=== PATIENT | female | born 1985 | race American Indian/Alaskan Native ===

== ENCOUNTER 2016-10-11 19:45 | Emergency (ER) | payer SELFPAY ==
[2016-10-11 19:56] VITALS: BP 120/70
--- NOTE | 2016-10-11 21:02 | EDM.PDOC ---
ED HPI GENERAL MEDICAL PROBLEM - General Chief Complaint: Abdominal Pain Stated Complaint: ABD PAINS, [id number] Time Seen by Provider: 10/11/16 20:40 Source of Information: Reports: Patient History Limitations: Reports: No Limitations - History of Present Illness INITIAL COMMENTS - FREE TEXT/NARRATIVE: ED with c/o of abdominal pain bloating and watery diarrhea for past 5-6 days. States she is worried about her liver and kidneys. Admitts to relapsing twice in past week with IV meth, last 4 days ago. No urinary complaints. Reports being airlifted approximately one year ago as kidneys were shutting down. LMP 2 months ago. Location: Reports: Abdomen Quality: Reports: Pressure, Sharp Severity: Moderate Abdominal Pain Score (Numeric/FACES): 6 - Related Data Allergies Allergy/AdvReac Type Severity Reaction Status Date / Time No Known Allergies Allergy Verified 10/11/16 19:55 Home Meds: Home Meds . 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, Other OB/BYN History: anti ashleigh antibody Musculoskeletal History: Reports: None Neurological History: Reports: None Psychiatric History: Reports: ADHD, Addiction Endocrine/Metabolic History: Reports: None Hematologic History: Reports: None Other Hematologic History: anti ashleigh antibody Immunologic History: Reports: None Oncologic (Cancer) History: Reports: None - Infectious Disease History Infectious Disease History: Reports: Hepatitis C Social & Family History - Family History HEENT: Reports: None Cardiac: Reports: None Respiratory: Reports: None GI: Reports: None : Reports: None OBGYN: Reports: None Musculoskeletal: Reports: None Neurological: Reports: None Hematologic: Reports: None Immunologic: Reports: None Dermatologic: Reports: None Oncologic: Reports: None - Tobacco Use Smoking Status *Q: Current Some Day Smoker Years of Tobacco use: 10 Packs/Tins Daily: 0.2 Used Tobacco, but Quit: No Month Tobacco Last Used: may 2014 Second Hand Smoke Exposure: Yes - Caffeine Use Caffeine Use: Reports: None - Alcohol Use Days Per Week of Alcohol Use: 0 - Recreational Drug Use Recreational Drug Use: No Drug Use in Last 12 Months: Yes Recreational Drug Type: Reports: Methamphetamine Recreational Drug Use Frequency: Daily ED ROS GENERAL - Review of Systems Review Of Systems: See Below Constitutional: Reports: No Symptoms HEENT: Reports: No Symptoms Respiratory: Reports: No Symptoms Cardiovascular: Reports: No Symptoms GI/Abdominal: Reports: Abdominal Pain, Diarrhea, Distension : Reports: Flank Pain (right) Musculoskeletal: Reports: No Symptoms Skin: Reports: No Symptoms Neurological: Reports: No Symptoms Psychiatric: Reports: Anxiety Hematologic/Lymphatic: Reports: No Symptoms, Other (Admits hx positive Hep C) ED EXAM, GI/ABD - Physical Exam Exam: See Below Exam Limited By: No Limitations General Appearance: Alert, Mild Distress Eyes: Bilateral: EOMI Ears: Normal External Exam Nose: Normal Inspection Throat/Mouth: Normal Inspection, Normal Lips, Normal Oropharynx Head: Atraumatic, Normocephalic Neck: Normal Inspection, Full Range of Motion Respiratory/Chest: No Respiratory Distress, Lungs Clear, Normal Breath Sounds Cardiovascular: Normal Peripheral Pulses, Regular Rate, Rhythm GI/Abdominal: Normal Bowel Sounds, Soft, Hyperactive Bowel Sounds, Tenderness ( general lower abdomen, greater with palpation RUQ) Extremities: Normal Inspection Neurological: Alert, Oriented, Normal Cognition Psychiatric: Anxious Skin Exam: Warm, Dry, Intact, Normal Color, Tattoo(s) Course - Vital Signs Last Recorded V/S: Last Vital Signs Temp 97.9 F 10/11/16 19:55 Pulse 75 10/11/16 19:55 Resp 20 10/11/16 19:55 BP 120/70 10/11/16 19:55 Pulse Ox 100 10/11/16 19:55 - Orders/Labs/Meds Labs: Laboratory Tests 10/11/16 10/11/16 10/11/16 Range/Units 20:37 20:37 20:45 WBC 6.6 (5.0-10.0) 10^3/uL RBC 4.31 (4.2-5.4) 10^6/uL Hgb 13.1 (12.0-16.0) g/dL Hct 38.9 (37.0-47.0) % MCV 90.3 (80-100) fL MCH 30.4 (27.0-34.0) pg MCHC 33.7 (33.0-35.0) g/dL Plt Count 232 (150-450) 10^3/uL Neut % (Auto) 56.2 (42.2-75.2) % Lymph % (Auto) 33.6 (20.5-50.1) % [place] % (Auto) 8.3 H (2-8) % Eos % (Auto) 1.7 (1.0-3.0) % Baso % (Auto) 0.2 (0.0-1.0) % Sodium (135-145) mmol/L Potassium (3.6-5.0) mmol/L Chloride (101-111) mmol/L Carbon Dioxide (21.0-31.0) mmol/L Anion Gap BUN (7-18) mg/dL Creatinine (0.6-1.3) mg/dL Est Cr Clr Drug Dosing mL/min Estimated GFR (MDRD) BUN/Creatinine Ratio Glucose (74-105) mg/dL Calcium (8.4-10.2) mg/dl Total Bilirubin (0.2-1.0) mg/dL AST (10-42) IU/L ALT (10-60) IU/L Alkaline Phosphatase (42-121) IU/L C-Reactive Protein (0.0-1.3) mg/dL Total Protein (6.7-8.2) g/dl Albumin (3.2-5.5) g/dl Globulin Albumin/Globulin Ratio Amylase (28-100) U/L Lipase (22-51) U/L HCG, Qual Urine Color Yellow (YELLOW) Urine Appearance Slightly cloudy (CLEAR) Urine pH 6.5 (5.0-9.0) Ur Specific [place] 1.020 (1.005-1.030) Urine Protein Negative (NEGATIVE) Urine Glucose (UA) Negative (NEGATIVE) Urine Ketones Negative (NEGATIVE) Urine Occult Blood Negative (NEGATIVE) Urine Nitrite Positive H (NEGATIVE) Urine Bilirubin Negative (NEGATIVE) Urine Urobilinogen 0.2 (0.2-1.0) mg/dL Ur Leukocyte Esterase Trace H (NEGATIVE) Urine RBC 0-5 /HPF Urine WBC 5-10 H (0-5/HPF) /HPF Ur Epithelial Cells Few /HPF Urine Bacteria Many H (0-FEW/HPF) /HPF Urine Opiates Screen Negative (NEGATIVE) Ur Oxycodone Screen Negative (NEGATIVE) Urine Methadone Screen Negative (NEGATIVE) Ur Barbiturates Screen Negative (NEGATIVE) U Tricyclic Antidepress Negative (NEGATIVE) Ur Phencyclidine Scrn Negative (NEGATIVE) Ur Amphetamine Screen Positive H (NEGATIVE) U Methamphetamines Scrn Positive H (NEGATIVE) Urine MDMA Screen Negative (NEGATIVE) U Benzodiazepines Scrn Negative (NEGATIVE) Urine Cocaine Screen Negative (NEGATIVE) U Marijuana (THC) Screen Negative (NEGATIVE) 10/11/16 10/11/16 Range/Units 20:45 20:45 WBC (5.0-10.0) 10^3/uL RBC (4.2-5.4) 10^6/uL Hgb (12.0-16.0) g/dL Hct (37.0-47.0) % MCV (80-100) fL MCH (27.0-34.0) pg MCHC (33.0-35.0) g/dL Plt Count (150-450) 10^3/uL Neut % (Auto) (42.2-75.2) % Lymph % (Auto) (20.5-50.1) % [place] % (Auto) (2-8) % Eos % (Auto) (1.0-3.0) % Baso % (Auto) (0.0-1.0) % Sodium 134 L (135-145) mmol/L Potassium 3.8 (3.6-5.0) mmol/L Chloride 100 L (101-111) mmol/L Carbon Dioxide 25.0 (21.0-31.0) mmol/L Anion Gap 12.8 BUN 6 L (7-18) mg/dL Creatinine 0.6 (0.6-1.3) mg/dL Est Cr Clr Drug Dosing 137.04 mL/min Estimated GFR (MDRD) > 60 BUN/Creatinine Ratio 10.00 Glucose 96 (74-105) mg/dL Calcium 8.7 (8.4-10.2) mg/dl Total Bilirubin 0.3 (0.2-1.0) mg/dL AST 20 (10-42) IU/L ALT 25 (10-60) IU/L Alkaline Phosphatase 78 (42-121) IU/L C-Reactive Protein 4.6 H (0.0-1.3) mg/dL Total Protein 6.8 (6.7-8.2) g/dl Albumin 3.3 (3.2-5.5) g/dl Globulin 3.5 Albumin/Globulin Ratio 0.94 Amylase 43 (28-100) U/L Lipase 30 (22-51) U/L HCG, Qual Negative Urine Color (YELLOW) Urine Appearance (CLEAR) Urine pH (5.0-9.0) Ur Specific [place] (1.005-1.030) Urine Protein (NEGATIVE) Urine Glucose (UA) (NEGATIVE) Urine Ketones (NEGATIVE) Urine Occult Blood (NEGATIVE) Urine Nitrite (NEGATIVE) Urine Bilirubin (NEGATIVE) Urine Urobilinogen (0.2-1.0) mg/dL Ur Leukocyte Esterase (NEGATIVE) Urine RBC /HPF Urine WBC (0-5/HPF) /HPF Ur Epithelial Cells /HPF Urine Bacteria (0-FEW/HPF) /HPF Urine Opiates Screen (NEGATIVE) Ur Oxycodone Screen (NEGATIVE) Urine Methadone Screen (NEGATIVE) Ur Barbiturates Screen (NEGATIVE) U Tricyclic Antidepress (NEGATIVE) Ur Phencyclidine Scrn (NEGATIVE) Ur Amphetamine Screen (NEGATIVE) U Methamphetamines Scrn (NEGATIVE) Urine MDMA Screen (NEGATIVE) U Benzodiazepines Scrn (NEGATIVE) Urine Cocaine Screen (NEGATIVE) U Marijuana (THC) Screen (NEGATIVE) Departure - Departure Time of Disposition: 21:25 Disposition: Against Medical Advice 07 Condition: Undetermined Clinical Impression: IVDU (intravenous drug user), Methamphetamine abuse Abdominal pain Qualifiers: Abdominal location: unspecified location Qualified Code(s): R10.9 - Unspecified abdominal pain Diarrhea Qualifiers: Diarrhea type: unspecified type Qualified Code(s): R19.7 - Diarrhea, unspecified UTI (urinary tract infection) Qualifiers: Urinary tract infection type: site unspecified Hematuria presence: without hematuria Qualified Code(s): N39.0 - Urinary tract infection, site not specified - Discharge Information Forms: ED Department Discharge
[2016-10-11 21:12] LABS: CHLORIDE,CL 100 mmol/L (101-111); SODIUM,NA 134 mmol/L (135-145)
== END 2016-10-11 21:24 | disposition left against medical advice (07) ==
LOC: DL.ED 19:45 → EEVIPCON 19:45 → DL.ED 21:24
DX: N39.0 Urinary tract infection, site not specified (principal); R19.7 Diarrhea, unspecified; F17.210 Nicotine dependence, cigarettes, uncomplicated; F15.10 Other stimulant abuse, uncomplicated; F19.90 Other psychoactive substance use, unspecified, uncomplicated
CPT/HCPCS: 36415; 80053; 80305; 81001; 82150; 83690; 84703; 85025; 86140; 87086; 87088; 87186; 99283; 99284

== ENCOUNTER 2016-10-24 03:05 | Emergency (ER) | payer SELFPAY ==
[2016-10-24 03:21] VITALS: BP 154/123
[2016-10-24] MEDS ORDERED: Ibuprofen 600 MG Tab PO ONE (03:36)
[2016-10-24] MEDS ORDERED: Doxycycline 100 MG Cap PO ONE (03:36)
--- NOTE | 2016-10-24 03:43 | EDM.PDOC ---
ED HPI GENERAL MEDICAL PROBLEM - General Chief Complaint: General Stated Complaint: BLOOD INFECTION? Time Seen by Provider: 10/24/16 03:10 Source of Information: Reports: Patient History Limitations: Reports: No Limitations - History of Present Illness INITIAL COMMENTS - FREE TEXT/NARRATIVE: c/o increased pain and swelling to right thumb past two days, unable to sleep tonight. No fever Right 1-Thumb Pain Score (Numeric/FACES): 8 - Related Data Allergies Allergy/AdvReac Type Severity Reaction Status Date / Time No Known Allergies Allergy Verified 10/24/16 03:20 Home Meds: Home Meds . 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, Other OB/BYN History: anti ashleigh antibody Musculoskeletal History: Reports: None Neurological History: Reports: None Psychiatric History: Reports: ADHD, Addiction Endocrine/Metabolic History: Reports: None Hematologic History: Reports: None Other Hematologic History: anti ashleigh antibody Immunologic History: Reports: None Oncologic (Cancer) History: Reports: None - Infectious Disease History Infectious Disease History: Reports: Hepatitis C Social & Family History - Family History HEENT: Reports: None Cardiac: Reports: None Respiratory: Reports: None GI: Reports: None : Reports: None OBGYN: Reports: None Musculoskeletal: Reports: None Neurological: Reports: None Hematologic: Reports: None Immunologic: Reports: None Dermatologic: Reports: None Oncologic: Reports: None - Tobacco Use Smoking Status *Q: Current Every Day Smoker Years of Tobacco use: 10 Packs/Tins Daily: 10 Used Tobacco, but Quit: No Month Tobacco Last Used: may 2014 Second Hand Smoke Exposure: Yes - Caffeine Use Caffeine Use: Reports: Soda - Alcohol Use Days Per Week of Alcohol Use: 0 - Recreational Drug Use Recreational Drug Use: No Drug Use in Last 12 Months: Yes Recreational Drug Type: Reports: Methamphetamine Recreational Drug Use Frequency: Daily ED ROS GENERAL - Review of Systems Review Of Systems: See Below Constitutional: Reports: No Symptoms Musculoskeletal: Reports: Other (right thumb painful throbbing, swollen) Skin: Reports: Other (right thumb infected hangnail) ED EXAM, GENERAL - Physical Exam Exam: See Below Exam Limited By: No Limitations General Appearance: Alert, Anxious Throat/Mouth: Normal Voice Head: Atraumatic, Normocephalic Respiratory/Chest: No Respiratory Distress Cardiovascular: Normal Peripheral Pulses, Regular Rate, Rhythm Extremities: Redness (right distal thumb) Psychiatric: Anxious Skin Exam: Warm, Dry, Intact, Erythema (right distal thumb mild swelling, lateral nail edge with subungal abscess at nail edge, hang nails on all digits, nails bitten short. ). No: Normal Color ED GENERAL MEDICAL PROCEDURES - Additional/Other Procedure(s) Other (Free Text) Procedure(s): I&D: cleansed right lateral thumb with betadine, lanced with 18 Gauge needle. Moderate amount thick purulent fluid drained.Culture obtained. Bandaide dressing applied Course - Vital Signs Last Recorded V/S: Last Vital Signs Temp 96.5 F 10/24/16 03:10 Pulse 94 10/24/16 03:10 Resp 18 10/24/16 03:10 BP 154/123 H 10/24/16 03:10 Pulse Ox 99 10/24/16 03:10 - Orders/Labs/Meds Orders: Active Orders 24 hr Category Date Time Status CULTURE WOUND [RM] Stat Lab 10/24/16 03:36 Ordered Meds: Medications Discontinued Medications Generic Name Dose Route Start Last Admin Trade Name Freq PRN Reason Stop Dose Admin Doxycycline Hyclate 100 mg 10/24/16 03:36 Vibramycin PO 10/24/16 03:37 ONETIME ONE Ibuprofen 600 mg 10/24/16 03:36 Motrin PO 10/24/16 03:37 ONETIME ONE Departure - Departure Time of Disposition: 03:38 Disposition: Home, Self-Care 01 Condition: Fair (sub) Clinical Impression: Subungual infection of finger Qualifiers: Laterality: right Qualified Code(s): L03.011 - Cellulitis of right finger - Discharge Information Instructions: Abscess, [id number] Forms: ED Department Discharge Additional Instructions: warm soak 3 times daily cover with bandaide clinic follow up on Sunday if not improving tylenol or ibuprofen for discomfort - My Orders Last 24 Hours: My Active Orders 10/24/16 03:36 CULTURE WOUND [RM] Stat - Assessment/Plan Last 24 Hours: My Active Orders 10/24/16 03:36 CULTURE WOUND [RM] Stat
== END 2016-10-24 03:46 | disposition home or self-care (01) ==
LOC: EEVIPCON 03:05 → DL.ED 03:05
DX: L03.011 Cellulitis of right finger (principal); F17.210 Nicotine dependence, cigarettes, uncomplicated
CPT/HCPCS: 10060; 26010; 87070; 87077; 87186; 99282; 99283; A9270

== ENCOUNTER 2017-05-17 09:43 | Emergency (ER) | payer MEDICAID, OTHER ==
[2017-05-17] MEDS ORDERED: Phenylephrine 1% 10 MG/ML SDV IV ONE (09:44)
[2017-05-17] MEDS ORDERED: Succinylcholine 200 MG/10 ML MDV IV ONE (09:44)
[2017-05-17] MEDS ORDERED: Rocuronium 50 MG/5 ML Vial IV ONE (09:44)
[2017-05-17] MEDS ORDERED: Propofol 200 MG/20 ML SDV IV ONE (09:44)
[2017-05-17] MEDS: LORazepam 2 MG/ML Syringe IM ONE (09:45)
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
--- NOTE | 2017-05-17 10:30 | CR ---
Clinical history: AP supine portable chest film confirms satisfactory location of the NG tube and ext ernal playground monitor leads. Endotracheal tube tip clearly past the thoracic inlet, directed to the right of midline, measures 3.5 cm from the bronchial bifurcation. Normal cardiac silhouette without alveolar edema or dependent effusion. Patchy retrocardiac consolidation (atelectasis or infiltrate) left base. No lung mass or other focal lobar consolidation.
[2017-05-17 10:36] LABS: ACETAMINOPHEN < 10; CHLORIDE,CL 105 mmol/L (101-111); SODIUM,NA 137 mmol/L (135-145)
[2017-05-17] MEDS: Potassium Chloride 10 MEQ in Premix Bag 1 BAG IV ONE ×2 (10:45→11:44)
[2017-05-17] MEDS: Sodium Chloride 0.9% 1,000 ML IV ONE ×2 (10:45→11:45)
[2017-05-17] MEDS: Phenylephrine 0.5% Nasal Spray 15 ML Bot ONE (10:51)
[2017-05-17] MEDS: Haloperidol Lactate 5 MG/ML SDV IVPUSH ONE (10:51)
[2017-05-17] MEDS: diphenhydrAMINE 50 MG/ML SDV IVPUSH ONE (10:51)
[2017-05-17] MEDS: Midazolam 1 MG/ML 2 ML SDV IVPUSH ONE ×2 (10:51→10:55)
[2017-05-17] MEDS: Midazolam 1 MG/ML 2 ML SDV ONE (10:54)
[2017-05-17 14:24] VITALS: BP 106/65
== END 2017-05-17 14:28 ==
LOC: EDUNIT# → EDBD 09:43 → DL.ED 09:43
DX: T43.594A Poisoning by other antipsychotics and neuroleptics, undetermined, initial encounter (principal); T14.91XA Suicide attempt, initial encounter; F17.210 Nicotine dependence, cigarettes, uncomplicated
CPT/HCPCS: 31500; 36415; 71045; 80053; 80305; 81001; 84484; 85025; 86706; 86803; 87389; 93005; 96365; 96375; 99285; G0480; J0330; J2060; J2250; J2370; J2704; J3480; J7030

== ENCOUNTER 2020-09-15 16:10 | Emergency (ER) | payer MEDICAID, OTHER | END 2020-09-15 17:44 | disposition left against medical advice (07) | LOC: DL.ED 16:10 | DX: Z53.21 Procedure and treatment not carried out due to patient leaving prior to being seen by health care provider (principal) ==

== ENCOUNTER 2022-03-03 10:44 | Emergency (ER) | payer MEDICAID ==
[2022-03-03] MEDS ORDERED: Sodium Chloride 0.9% 1,000 ML IV ONE ×2 (11:10→12:12)
[2022-03-03] MEDS ORDERED: Ondansetron 4 MG/2 ML SDV IV ONE (11:10)
[2022-03-03] MEDS ORDERED: Ketorolac 30 MG/ML SDV IVPUSH ONE (11:11)
[2022-03-03 11:35] VITALS: BP 119/69; PULSE 128
[2022-03-03 11:55] LABS: ANION GAP 13.7 mEq/L (7-13); CHLORIDE,CL 91 mmol/L (98-107); SODIUM,NA 126 mmol/L (136-145)
[2022-03-03 11:56] LABS: ESTIMATED GFR 41 mL/min (>=60)
[2022-03-03] MEDS ORDERED: Sodium Chloride 0.9% 10 ML Syringe FLUSH PRN (12:13)
[2022-03-03] MEDS ORDERED: metroNIDAZOLE/Normal Saline 500 MG in Premix Bag 100 BAG IV ONE (12:14)
[2022-03-03] MEDS ORDERED: Cefepime 2 GM in Sodium Chloride 0.9% 50 ML IV ONE (12:14)
[2022-03-03] MEDS ORDERED: NS with KCl 40mEq 1,000 ML IV SCH (12:15)
[2022-03-03] MEDS ORDERED: Iopamidol 612 MG/ML 100 ML Bottle IVPUSH ONE (12:31)
[2022-03-03 12:36] LABS: AMPHETAMINES,URINE POSITIVE (NEGATIVE); BARBITURATES,URINE NEGATIVE (NEGATIVE); BENZODIAZEPINE,URINE NEGATIVE (NEGATIVE); MDMA (ECSTASY), URINE NEGATIVE (NEGATIVE); METHADONE,URINE NEGATIVE (NEGATIVE); METHAMPHETAMINES,URINE POSITIVE (NEGATIVE); OPIATES,URINE NEGATIVE (NEGATIVE); OXYCODONE,URINE NEGATIVE (NEGATIVE); PHENCYCLIDINE,URINE NEGATIVE (NEGATIVE); TCA,URINE NEGATIVE (NEGATIVE)
[2022-03-03 13:31] LABS: CORONAVIRUS COVID-19 NAA NEGATIVE (NEGATIVE); RESPIRATORY SYNCYTIAL VIR NAA NEGATIVE (NEGATIVE)
[2022-03-08 12:47] LABS: C.TRACHOMATIS BY TMA Positive (Negative); N.GONORRHOEAE BY TMA Negative (Negative)
== END 2022-03-03 16:39 ==
LOC: DL.ED 10:44
DX: A41.9 Sepsis, unspecified organism (principal); R65.20 Severe sepsis without septic shock; N17.9 Acute kidney failure, unspecified; N12 Tubulo-interstitial nephritis, not specified as acute or chronic; N13.2 Hydronephrosis with renal and ureteral calculous obstruction; F15.10 Other stimulant abuse, uncomplicated; E87.1 Hypo-osmolality and hyponatremia; E87.6 Hypokalemia; F17.210 Nicotine dependence, cigarettes, uncomplicated; Z20.822 Contact with and (suspected) exposure to COVID-19
CPT/HCPCS: 0241U; 36415; 71045; 74177; 80053; 80305; 80307; 81001; 81025; 82150; 83605; 83690; 85025; 87040; 87077; 87086; 87088; 87186; 87491; 87563; 87591; 96361; 96365; 96368; 96375; 99285; J0692; J1885; J2405; J3370; J3480; J3490; J7030; J7040; Q9967

== ENCOUNTER 2023-07-20 09:59 | Emergency (ER) | payer MEDICAID ==
[2023-07-20 10:20] LABS: APPEARANCE,URINE TURBID (CLEAR); BILIRUBIN,URINE SMALL (NEGATIVE); COLOR,URINE YELLOW (YELLOW); GLUCOSE,URINE NEGATIVE (NEGATIVE); KETONES,URINE TRACE (NEGATIVE); LEUKOCYTE ESTERASE,URINE LARGE (NEGATIVE); NITRITE,URINE NEGATIVE (NEGATIVE); OCCULT BLOOD,URINE LARGE (NEGATIVE); PH,URINE 6.5 (5.0-9.0); PROTEIN,URINE >=300 (NEGATIVE)
[2023-07-20 10:27] LABS: AMPHETAMINES,URINE POSITIVE (NEGATIVE); BARBITURATES,URINE NEGATIVE (NEGATIVE); BENZODIAZEPINE,URINE NEGATIVE (NEGATIVE); MDMA (ECSTASY), URINE POSITIVE (NEGATIVE); METHADONE,URINE NEGATIVE (NEGATIVE); METHAMPHETAMINES,URINE POSITIVE (NEGATIVE); OPIATES,URINE NEGATIVE (NEGATIVE); OXYCODONE,URINE NEGATIVE (NEGATIVE); PHENCYCLIDINE,URINE NEGATIVE (NEGATIVE); TCA,URINE NEGATIVE (NEGATIVE)
[2023-07-20 10:30] LABS: WBC,URINE >100 /HPF (0-5/HPF)
[2023-07-20 10:31] LABS: BACTERIA,URINE MANY /HPF (0-FEW/HPF); RBC,URINE 20-30 /HPF (0-5)
[2023-07-20 10:33] LABS: EPITHELIAL CELLS,URINE FEW /HPF (NOT SEEN); TRICHOMONAS,URINE PRESENT /HPF (NOT SEEN)
[2023-07-20 10:44] LABS: BASOPHILS PERCENT AUTO 0.3 % (0.0-1.0); EOSINOPHILS PERCENT AUTO 6.1 % (1.0-3.0); HEMATOCRIT 41.6 % (37.0-47.0); LYMPHOCYTES PERCENT AUTO 43.4 % (20.5-50.1); MEAN CORPUSCULAR HEMOGLOBIN 29.2 pg (27.0-34.0); MEAN CORPUSCULAR HGB CONC 33.7 g/dL (33.0-35.0); MEAN CORPUSCULAR VOLUME 86.8 fL (80-100); MONOCYTES PERCENT AUTO 10.1 % (2-8); NEUTROPHILS PERCENT AUTO 40.1 % (42.2-75.2); PLATELET COUNT,PLT 257 10^3/uL (150-450); RED BLOOD CELL COUNT 4.79 10^6/uL (4.2-5.4); WHITE BLOOD CELL COUNT,WBC 6.1 10^3/uL (5.0-10.0)
[2023-07-20 10:57] VITALS: BP 109/81; PULSE 89
[2023-07-20 11:03] LABS: A/G RATIO 0.8; ALBUMIN 3.8 g/dL (3.4-5.0); ANION GAP 16.5 mEq/L (7-13); BILIRUBIN TOTAL 0.7 mg/dL (0.2-1.0); BUN/CREATININE RATIO 15.1 (No establ ref range); CALCIUM 9.4 mg/dL (8.5-10.1); CREATININE 0.93 mg/dL (0.55-1.02); EST CRCL DRUG DOSING (CG) 82.74 mL/min; POTASSIUM,K 3.5 mmol/L (3.5-5.1); PROTEIN TOTAL,TP 8.8 g/dL (6.4-8.2)
[2023-07-20] MEDS: cefTRIAXone 1 GM Vial IVPUSH ONE (11:38)
[2023-07-20] MEDS: Doxycycline Monohydrate 100 MG Cap PO ONE (11:39)
[2023-07-20] MEDS: metroNIDAZOLE 250 MG Tab PO ONE (11:39)
[2023-07-20] MEDS: Acetaminophen 500 MG Tab PO ONE (11:39)
[2023-07-20] MEDS: Ibuprofen 400 MG Tab PO ONE (11:39)
[2023-07-25 07:41] LABS: C.TRACHOMATIS BY TMA Negative (Negative); N.GONORRHOEAE BY TMA Negative (Negative); SOURCE URINE
== END 2023-07-20 12:50 | disposition home or self-care (01) ==
LOC: DL.ED 09:59
DX: N13.30 Unspecified hydronephrosis (principal); F17.210 Nicotine dependence, cigarettes, uncomplicated; A59.9 Trichomoniasis, unspecified
CPT/HCPCS: 36415; 76770; 80053; 80305; 81001; 81025; 85025; 87040; 87086; 87491; 87591; 96374; 99284; A9270; J0696

== ENCOUNTER 2023-08-10 23:42 | Emergency (ER) | payer MEDICAID ==
[2023-08-11 00:29] LABS: BASOPHILS PERCENT AUTO 0.2 % (0.0-1.0); EOSINOPHILS PERCENT AUTO 2.9 % (1.0-3.0); HEMATOCRIT 40.3 % (37.0-47.0); HEMOGLOBIN 13.5 g/dL (12.0-16.0); LYMPHOCYTES PERCENT AUTO 42.2 % (20.5-50.1); MEAN CORPUSCULAR HEMOGLOBIN 29.1 pg (27.0-34.0); MEAN CORPUSCULAR HGB CONC 33.5 g/dL (33.0-35.0); MEAN CORPUSCULAR VOLUME 86.9 fL (80-100); MONOCYTES PERCENT AUTO 12.3 % (2-8); NEUTROPHILS PERCENT AUTO 42.4 % (42.2-75.2); PLATELET COUNT,PLT 271 10^3/uL (150-450); RED BLOOD CELL COUNT 4.64 10^6/uL (4.2-5.4); WHITE BLOOD CELL COUNT,WBC 6.2 10^3/uL (5.0-10.0)
[2023-08-11] MEDS: Sodium Chloride 0.9% 1,000 ML IV ONE (00:30)
[2023-08-11 00:45] LABS: BILIRUBIN,URINE SMALL (NEGATIVE); COLOR,URINE DARK YELLOW (YELLOW); GLUCOSE,URINE NEGATIVE (NEGATIVE); KETONES,URINE 15 (NEGATIVE); LEUKOCYTE ESTERASE,URINE SMALL (NEGATIVE); NITRITE,URINE NEGATIVE (NEGATIVE); OCCULT BLOOD,URINE LARGE (NEGATIVE); PH,URINE 6.5 (5.0-9.0); PROTEIN,URINE >=300 (NEGATIVE)
[2023-08-11 00:46] LABS: APPEARANCE,URINE CLOUDY (CLEAR)
[2023-08-11 00:49] LABS: A/G RATIO 0.8; ALBUMIN 3.7 g/dL (3.4-5.0); ANION GAP 15.3 mEq/L (7-13); BILIRUBIN TOTAL 0.6 mg/dL (0.2-1.0); CALCIUM 8.9 mg/dL (8.5-10.1); CREATININE 0.92 mg/dL (0.55-1.02); EST CRCL DRUG DOSING (CG) 83.64 mL/min; POTASSIUM,K 3.3 mmol/L (3.5-5.1); PROTEIN TOTAL,TP 8.1 g/dL (6.4-8.2)
[2023-08-11 00:52] LABS: LACTIC ACID 0.9 mmol/L (0.4-2.0)
[2023-08-11 00:54] LABS: RBC,URINE >100 /HPF (0-5)
[2023-08-11 00:55] LABS: EPITHELIAL CELLS,URINE FEW /HPF (NOT SEEN)
[2023-08-11 00:56] LABS: BACTERIA,URINE MODERATE /HPF (0-FEW/HPF); MUCUS,URINE OCCASIONAL /LPF (NOT SEEN)
[2023-08-11] MEDS: Lidocaine 1% 5 ML VIAL INJECT ONE (00:58)
[2023-08-11] MEDS: Iopamidol 612 MG/ML 100 ML Bottle IVPUSH ONE (01:18)
[2023-08-11 02:28] VITALS: PULSE 88
[2023-08-11 03:58] VITALS: BP 110/58
== END 2023-08-11 03:56 ==
LOC: DL.ED 23:42
DX: T83.092A Other mechanical complication of nephrostomy catheter, initial encounter (principal); N13.2 Hydronephrosis with renal and ureteral calculous obstruction; N39.0 Urinary tract infection, site not specified
CPT/HCPCS: 36415; 74177; 80053; 81001; 81025; 83605; 85025; 87086; 96360; 99284; J7030; Q9967; 99283; J3490

== ENCOUNTER 2023-08-22 18:56 | Emergency (ER) | payer MEDICAID ==
[2023-08-22 19:21] VITALS: BP 113/85; PULSE 92
== END 2023-08-22 19:44 | disposition left against medical advice (07) ==
LOC: DL.ED 18:56
DX: Z53.21 Procedure and treatment not carried out due to patient leaving prior to being seen by health care provider (principal)